=== PATIENT | female | born 1985 | race Caucasian/White ===

== ENCOUNTER 2022-05-21 08:32 | Emergency (ER) | payer OTHER ==
[2022-05-21 08:43] VITALS: BP 123/93
--- NOTE | 2022-05-21 08:59 | ED Physician Documentation ---
PD HPI FEMALE - Stated complaint Stated Complaint: FEMALE - Chief complaint Chief Complaint: UTI - Additional information Additional information: Patient is 37-year-old female presenting with concern for dysuria. Symptoms x1 day. Dysuria with lower pelvic cramping. Denies vaginal discharge, burning or concern for sexually transmitted infection. Reports history of yearly urinary tract infections. Also reports bacterial vaginosis in the past which has felt similar to this. Review of Systems Ten Systems: 10 systems reviewed and negative : reports: Dysuria PD PAST MEDICAL HISTORY - Present Medications Home Medications: Ambulatory Orders Medication Instructions Recorded Confirmed metroNIDAZOLE 0.75% GEL [Flagyl 0 applic TOP DAILY 5 Days #45 gm 05/21/22 Gel] - Allergies Allergies/Adverse Reactions: Allergies Allergy/AdvReac Type Severity Reaction Status Date / Time No Known Drug Allergies Allergy Verified 05/21/22 08:44 PD ED PE NORMAL - General General: Alert and oriented X 3 - HEENT HEENT: Atraumatic - Respiratory Respiratory: No respiratory distress - Female Female : Deferred - Rectal Rectal: Deferred Results - Vitals Vitals: Vital Signs - 24 hr 05/21/22 08:41 Temperature 36.5 C Heart Rate 62 Respiratory 16 Rate Blood Pressure 123/93 H O2 Saturation 99 Oxygen O2 Source Room air - Labs Labs: Laboratory Tests 05/21/22 09:08 Urine Color YELLOW Urine Clarity CLEAR Urine pH 6.0 Ur Specific [place] 1.025 Urine Protein NEGATIVE Urine Glucose (UA) NEGATIVE Urine Ketones NEGATIVE Urine Occult Blood NEGATIVE Urine Nitrite NEGATIVE Urine Bilirubin NEGATIVE Urine Urobilinogen 0.2 (NORMAL) Ur Leukocyte Esterase NEGATIVE Ur Microscopic Review NOT INDICATED Urine Culture Comments NOT INDICATED Urine HCG, Qual NEGATIVE PD MEDICAL DECISION MAKING - ED course Complexity details: reviewed results, d/w patient ED course: Patient presents to the emergency department with concern for dysuria. Urine analysis negative for infection. Patient reports similar symptoms associated with bacterial vaginosis in the past. Wet mount and GC chlamydia ordered however pending at this time. Patient reports can no longer wait. Requests metronidazole cream, stating that this is helped her symptoms in the past. Will discharge with prescription for metronidazole cream. Encouraged follow-up on her wet mount results as well as follow-up with primary care. Departure - Departure Disposition: 01 Home, Self Care Clinical Impression: Dysuria Instructions: ED Dysuria Uncertain Cause Prescriptions: metroNIDAZOLE 0.75% GEL [Flagyl Gel] 0 applic TOP DAILY 5 Days #45 gm Comments: Thank you for allowing us to care for you today at [facility]. Thank again for your patience with us here in the emergency department. Urine analysis did not show any indications of infection. Your wet mount is currently pending at this time however as we discussed I will be discharging with a prescription for metronidazole vaginal cream to be used nightly for the next 5 days. Please follow-up with your primary care doctor soon as possible for medical recheck. If it anytime you have any new or worsening symptoms please not hesitate to return.
[2022-05-21 09:14] LABS: BILIRUBIN,URINE NEGATIVE (NEGATIVE); GLUCOSE, URINE (UA) NEGATIVE (NEGATIVE); KETONES,URINE (UA) NEGATIVE (NEGATIVE); LEUKOCYTE ESTERASE, URINE NEGATIVE (NEGATIVE); NITRITE,URINE NEGATIVE (NEGATIVE); OCCULT BLOOD,URINE NEGATIVE (NEGATIVE); PROTEIN,URINE NEGATIVE (NEGATIVE); UROBILINOGEN,URINE 0.2 (NORMAL) E.U./dL (NORMAL)
[2022-05-21 09:17] LABS: CLARITY,URINE CLEAR (CLEAR); HCG UR QUAL NEGATIVE
[2022-05-21 13:15] LABS: CHLAMYDIA TRACHOMATIS DNA NEGATIVE (NEGATIVE); NEISSERIA GONORRHOEAE DNA NEGATIVE (NEGATIVE); TRICHOMONAS VAGINALIS DNA NEGATIVE (NEGATIVE)
== END 2022-05-21 11:04 | disposition home or self-care (01) ==
LOC: ED 08:32
DX: R30.0 Dysuria (principal)
CPT/HCPCS: 81001; 81003; 81025; 87086; 87210; 87491; 87591; 87661; 99281; 99283